=== PATIENT | male | born 1970 | race Caucasian/White ===

== ENCOUNTER → 2016-10-11 | Outpatient (CLI) | payer OTHER ==
--- NOTE | 2016-10-12 23:38 | ECWPNPC ---
PATIENT NAME: SIMA MARIE : 1970 GENDER: MALE VISIT DATE: 10/11/2016 DISCHARGE DATE: 10/11/16 1520 VISIT LOCKED DATE TIME: PHYSICIAN: JAX RAINEY RESOURCE: JAX RAINEY REASON FOR APPOINTMENT 1. BACK HISTORY OF PRESENT ILLNESS HISTORY OF PRESENT ILLNESS: HERE FOR F/U AFTER INITIAL CONSULT ON 08-04-16 FOR CHRONIC LOW BACK PAIN.PRESCRIBED MOBIC 7.5MG DAILY AND TRAMADOL.PATIENT TRIALED MOBIC 7.5MG DAILY X3 DAYS AND IT CAUSED MENTAL CHANGES SO HE STOPPED.HE DIDNT TAKE TRAMADOL.HE IS FEARFUL OF MEDICATION.OFFERED INJECTION TRIALS BUT HE STATES HE REALLY DOESNT WANT TO GET INTO THAT.REPORTING POOR SLEEP SECONDARY TO PAIN.STATES THAT PT AND TRACTION HAD BEEN EFFECTIVE FOR HIM IN PAST.RATING LOW BACK PAIN 6/10 VAS.DISCUSSED MEDICATION AND TREATMENT OPTIONS. FALL RISK SCREENING: SCREENING :NO FALLS IN THE PAST YEAR CURRENT MEDICATIONS NOT-TAKING TRAMADOL HCL 50 MG TABLET 1 TABLET NEEDED ORALLY EVERY 6 HRS PRN MDD4 NOT-TAKING MOBIC 15 MG TABLET 1 TABLET ORALLY ONCE A DAY NOT-TAKING MOBIC 7.5 MG TABLET 1 TABLET ORALLY ONCE A DAY MEDICATION LIST REVIEWED AND RECONCILED WITH THE PATIENT PAST MEDICAL HISTORY RENATA DEP 04/28 MRI L SPINE DISC BULGES AT L3-4, THROUGH L5-S1 WITH MINIMAL THECAL SAC COMPRESSION ALLERGIES PENICILLIN (FOR ALLERGIES USE ONLY): PT UNSURE: ALLERGY SOCIAL HISTORY GENERAL: TOBACCO USE ARE YOU A:NONSMOKER LEARNING BARRIERS / SPECIAL NEEDS ORIENTED TO PLAN OF CARE: PATIENT, PAIN MANAGEMENT PATIENT, ORIENTED TO PLAN OF CARE: PATIENT, PAIN MANAGEMENT PATIENT. NEW PATIENT PAIN DIARY TODAY'S VISITNOTES FROM 0-10, WHAT LEVEL IS YOUR PAIN TODAY?0 PAIN CLINIC PFS, CLERGY, PUBLIC HEALTH REFERRALS PFS REFERRAL NEEDED?NO CLERGY REFERRAL NEEDED?NO PUBLIC HEALTH REFERRAL NEEDED?NO WAS THE PROVIDER NOTIFIED OF ANY PERTINENT INFO?NO PFS REFERRAL NEEDED?NO CLERGY REFERRAL NEEDED?NO PUBLIC HEALTH REFERRAL NEEDED?NO WAS THE PROVIDER NOTIFIED OF ANY PERTINENT INFO?NO REVIEW OF SYSTEMS CONSTITUTIONAL: ANY CHANGE IN YOUR MEDICAL CONDITION? NO . CHILLS NO . FEVER NO . INFECTION: DO YOU HAVE NEW INFECTIONS? NO . DO YOU HAVE HISTORY OF MRSA? NO . MUSCULOSKELETAL: ANY NEW PATTERNS OF PAIN OR NUMBNESS? NO . GASTROENTEROLOGY: ANY NEW CHANGE IN BOWEL CONTROL? NO . GENITOURINARY: ANY NEW CHANGE IN BLADDER CONTROL? NO . IS THERE A CHANCE YOU COULD BE ? NO . HEMATOLOGY/LYMPH: DO YOU TAKE ANY BLOOD THINNERS? (FOR EXAMPLE- COUMADIN, PLAVIX, AGGRENOX, PLATEL, PRADAXA, OR XARELTO) NO . WHEN WAS YOUR LAST DOSE? DATE: TIME: . NEUROLOGY: HAVE YOU FALLEN IN THE PAST 6 MONTHS? YES WHEN HE IS GOING UP THE STAIRS SOMETHIMES HIS LEFT KNEE GIVES OUT . ANY NEW EXTREMITY NUMBNESS OR WEAKNESS? NO . CARDIOLOGY: DO YOU HAVE A PACEMAKER OR DEFIBRILLATOR? NO . RESPIRATORY: HAVE YOU BEEN SICK IN THE PAST WEEK? NO . FEVER NO . FLU LIKE SYMPTOMS? NO . COUGH NO . INTEGUMENTARY: DO YOU HAVE ANY RASHES OR OPEN SORES? NO . ALLERGIC/IMMUNO: ARE YOU ALLERGIC TO SHELLFISH OR IV DYE? NO . ANY NEW ALLERGIES? NO . PSYCHIATRIC: DO YOU HAVE THOUGHTS OF HURTING YOURSELF OR SOMEONE ELSE? NO . ARE YOU ABUSED, NEGLECTED, OR IN AN UNSAFE ENVIRONMENT? NO . ENDOCRINOLOGY: ARE YOU DIABETIC? NO . OTHER: DO YOU NEED ANY PRESCRIPTIONS? NO . IF YES, PLEASE LIST: ____ . ANY NEW PROBLEMS WITH YOUR MEDICATIONS? NO . WHEN DID YOU LAST EAT? ____ . WHEN DID YOU LAST DRINK? ____ . WHAT DID YOU LAST DRINK? ____ . NAME OF PERSON DRIVING YOU HOME? ____ . DO YOU HAVE ANY OTHER QUESTIONS OR CONCERNS NO . REVIEWED BY: PROVIDER: JAX LAURENT . VITAL SIGNS WT 183.4 LBS, HT 71", BMI 25.58 INDEX, BP 161/95 MM HG, REPEAT BP 150/90 MANUAL, HR 72 /MIN, RR 18 /MIN, TEMP 96.3 F, OXYGEN SAT % 93%, NA INITIALS SC 14:48, REVIEWED BY: KG. EXAMINATION GENERAL EXAMINATION: LUNGS:LUNG SOUNDS ARE CLEAR. HEART:HEART RATE REGULAR. MUSCULOSKELETAL:*, MUSCLE STRENGTH TESTING 5/5 BILATERAL, PALPATION: POSITIVE FOR PAIN OVER L/S SPINE. POSITIVE FOR PAIN OVER L/S PARSPINALS.STRAIGHT LEG RAISE POSITIVE FOR LEFT LOW BACK PAIN AT 45 DEGREES.NEGATIVE FOR PATRICKS TEST.. DIAGNOSTIC:MRI L/S [id number]-REVIEWED. ASSESSMENTS LOW BACK PAIN - M54.5 (PRIMARY) LUMBAR DISC DISPLACEMENT WITHOUT MYELOPATHY - M51.26 TREATMENT LOW BACK PAIN STOP MOBIC TABLET, 15 MG, 1 TABLET, ORALLY, ONCE A DAY CONTINUE TRAMADOL HCL TABLET, 50 MG, 1 TABLET NEEDED, ORALLY, EVERY 6 HRS PRN MDD4 REFERRAL TO:PHYSICAL THERAPIST REASON:PT 2XWK X 8WK-LUMBAR TRACTION.CHRONIC LBP W MULTI LEVEL BULGING DISC PROCEDURE CODES FA211 ESTABILISHED PATIENT [facility] CHARGE DISPOSITION & COMMUNICATION FOLLOW UP 6 WEEKS ELECTRONICALLY SIGNED BY ANASTASIIA SILVERIO ON 10/12/2016 AT 01:54 PM EST DISCLAIMER : THIS IS A VISIT SUMMARY EXTRACTED FROM THE [employer] CHART. IT IS NOT A COPY OF THE [employer] PROGRESS NOTE. LIZY
== END ==
LOC: M PAIN 14:40
PROVIDERS: ATTEND Nurse Practitioner Family
DX: Z09 Encounter for follow-up examination after completed treatment for conditions other than malignant neoplasm (principal); G89.29 Other chronic pain; M51.26 Other intervertebral disc displacement, lumbar region; Z88.0 Allergy status to penicillin; Z79.1 Long term (current) use of non-steroidal anti-inflammatories (NSAID); Z79.891 Long term (current) use of opiate analgesic; Z87.891 Personal history of nicotine dependence

== ENCOUNTER → 2017-01-03 | Outpatient (CLI) | payer OTHER ==
--- NOTE | 2017-01-25 00:20 | ECWPNPC ---
PATIENT NAME: SIMA MARIE : 1970 GENDER: MALE VISIT DATE: 01/03/2017 DISCHARGE DATE: 01/03/17 1236 VISIT LOCKED DATE TIME: PHYSICIAN: JAX RAINEY RESOURCE: JAX RAINEY HISTORY OF PRESENT ILLNESS HISTORY OF PRESENT ILLNESS: HERE FOR F/U AND EVALUATION OF CHRONIC LOW BACK PAIN.REPORTS TRAMADOL AND MOBIC ARE INEFFECTIVE.C/O CONSTANT THORACIC AND LOW BACK PAIN WITH INTERMITTENT SHOOTING PAIN DOWN LEFT LEG.DESCRIBES PAIN CONSTANT ACHING PAIN.PAIN IS AGGREVATED BY PROLONGED SITTING OR STANDING.RATING PAIN VAS 5/10.HAS ANXIETY ABOUT TAKING MEDICINE AND ANY MEDICINE TRIALS FOR PAIN HAVE RESULTED IN PATIENT STOPPING MEDICATION DUE TO SIDE EFFECTS. PAIN THE PATIENT DESCRIBES THE PAIN... FALL RISK SCREENING: SCREENING :NO FALLS IN THE PAST YEAR CURRENT MEDICATIONS TAKING TRAMADOL HCL 50 MG TABLET 1 TABLET NEEDED ORALLY EVERY 6 HRS PRN MDD4 NOT-TAKING MOBIC 7.5 MG TABLET 1 TABLET ORALLY ONCE A DAY MEDICATION LIST REVIEWED AND RECONCILED WITH THE PATIENT PAST MEDICAL HISTORY RENATA DEP 04/28 MRI L SPINE DISC BULGES AT L3-4, THROUGH L5-S1 WITH MINIMAL THECAL SAC COMPRESSION ALLERGIES PENICILLIN (FOR ALLERGIES USE ONLY): PT UNSURE: ALLERGY REVIEW OF SYSTEMS CONSTITUTIONAL: ANY CHANGE IN YOUR MEDICAL CONDITION? NO. PT STATES HE WAS REFERRED TO PHYSICAL THERAPY FROM LAST VISIT HERE, BUT PT STATES HE DID NOT START PHYSICAL THERAPY HE HAS NO TRANSPORTATION OR PHONE. . CHILLS NO . FEVER NO . INFECTION: DO YOU HAVE NEW INFECTIONS? NO . DO YOU HAVE HISTORY OF MRSA? NO . MUSCULOSKELETAL: ANY NEW PATTERNS OF PAIN OR NUMBNESS? NO . GASTROENTEROLOGY: ANY NEW CHANGE IN BOWEL CONTROL? NO . GENITOURINARY: ANY NEW CHANGE IN BLADDER CONTROL? NO . IS THERE A CHANCE YOU COULD BE ? NO . HEMATOLOGY/LYMPH: DO YOU TAKE ANY BLOOD THINNERS? (FOR EXAMPLE- COUMADIN, PLAVIX, AGGRENOX, PLATEL, PRADAXA, OR XARELTO) NO . WHEN WAS YOUR LAST DOSE? DATE: TIME: . NEUROLOGY: HAVE YOU FALLEN IN THE PAST 6 MONTHS? NO . ANY NEW EXTREMITY NUMBNESS OR WEAKNESS? NO . CARDIOLOGY: DO YOU HAVE A PACEMAKER OR DEFIBRILLATOR? NO . RESPIRATORY: HAVE YOU BEEN SICK IN THE PAST WEEK? NO . FEVER NO . FLU LIKE SYMPTOMS? NO . COUGH NO . INTEGUMENTARY: DO YOU HAVE ANY RASHES OR OPEN SORES? NO . ALLERGIC/IMMUNO: ARE YOU ALLERGIC TO SHELLFISH OR IV DYE? NO . ANY NEW ALLERGIES? NO . PSYCHIATRIC: DO YOU HAVE THOUGHTS OF HURTING YOURSELF OR SOMEONE ELSE? NO . ARE YOU ABUSED, NEGLECTED, OR IN AN UNSAFE ENVIRONMENT? NO . ENDOCRINOLOGY: ARE YOU DIABETIC? NO . OTHER: DO YOU NEED ANY PRESCRIPTIONS? NO. PT TO DISCUSS PAIN CONTROL WITH Renny RAINEY . IF YES, PLEASE LIST: ____ . ANY NEW PROBLEMS WITH YOUR MEDICATIONS? NO . WHEN DID YOU LAST EAT? ____ . WHEN DID YOU LAST DRINK? ____ . WHAT DID YOU LAST DRINK? ____ . NAME OF PERSON DRIVING YOU HOME? ____ . DO YOU HAVE ANY OTHER QUESTIONS OR CONCERNS NO . REVIEWED BY: PROVIDER: JAX LAURENT . VITAL SIGNS WT 183.6 LBS, HT 71", BMI 25.60 INDEX, BP 145/85 MM HG, HR 90 /MIN, RR 16 /MIN, TEMP 98.6 F, OXYGEN SAT % 97%, SAFE IN ENV? (Y/N) Y, NA INITIALS TL 1133, REVIEWED BY: EM. EXAMINATION GENERAL EXAMINATION: LUNGS:LUNG SOUNDS ARE CLEAR. HEART:HEART RATE REGULAR. MUSCULOSKELETAL:*, MUSCLE STRENGTH TESTING 5/5 BILATERAL, PALPATION: POSITIVE FOR PAIN OVER L/S SPINE. POSITIVE FOR PAIN OVER L/S PARSPINALS.STRAIGHT LEG RAISE POSITIVE FOR LEFT LOW BACK PAIN AT 45 DEGREES.NEGATIVE FOR PATRICKS TEST., TRIGGER POINTS:, TRIGGER POINTS:, ELICITED WITH PALPATION OVER LUMBAR PARAVERTEBRAL MUSCLES AND INTO THE SECRUM. RESTRICTION OF ROM IN THIS AREA. DIAGNOSTIC:MRI L/S [id number]-REVIEWED. ASSESSMENTS LOW BACK PAIN - M54.5 (PRIMARY) LUMBAR DISC DISPLACEMENT WITHOUT MYELOPATHY - M51.26 MYALGIA - M79.1 TREATMENT LOW BACK PAIN NOTES: TRIGGER POINT INJECTIONS LOW BACK,TRIGGER POINT INJECTION MATERIAL WAS PRINTED, REVIEWED WITH AND GIVEN TO PT. PROCEDURE CODES FA211 ESTABILISHED PATIENT [facility] CHARGE DISPOSITION & COMMUNICATION FOLLOW UP 2WK POST (REASON: TPI BILAT. LOW BACK /LOW THORACIC) ELECTRONICALLY SIGNED BY ANASTASIIA SILVERIO ON 01/24/2017 AT 08:24 AM EDT DISCLAIMER : THIS IS A VISIT SUMMARY EXTRACTED FROM THE [employer] CHART. IT IS NOT A COPY OF THE [employer] PROGRESS NOTE. LIZY
== END ==
LOC: M PAIN 11:00
PROVIDERS: ATTEND Nurse Practitioner Family
DX: G89.29 Other chronic pain (principal); M51.26 Other intervertebral disc displacement, lumbar region; M79.1 Myalgia; F17.210 Nicotine dependence, cigarettes, uncomplicated; Z88.0 Allergy status to penicillin; Z79.899 Other long term (current) drug therapy

== ENCOUNTER → 2017-01-13 | Outpatient (CLI) | payer OTHER ==
--- NOTE | 2017-01-19 00:23 | ECWPNPC ---
PATIENT NAME: SIMA MARIE : 1970 GENDER: MALE VISIT DATE: 01/13/2017 DISCHARGE DATE: 01/13/17 1419 VISIT LOCKED DATE TIME: PHYSICIAN: BOYD MCCORMACK RESOURCE: BOYD MCCORMACK REASON FOR APPOINTMENT 1. TPI HISTORY OF PRESENT ILLNESS HISTORY OF PRESENT ILLNESS: PAIN THE PATIENT DESCRIBES THE PAIN... 46 YEAR OLD MALE WITH HISTORY OF CHRONIC BACK PAIN. PATIENT DESCRIBES THE PAIN HAVING IT ALL THE TIME WITH A PAIN SCORE OF 5-6/10 ON TODAY'S VISIT. PATIENT REPORTS THAT THE BUMP IN HIS BACK APPEARED AFTER HE HEARD A POP IN HIS BACK WHICH HAPPENED ABOUT 8 YEARS AGO WHEN HE WAS LOOKING UP AT A CAR ON A HOIST WHEN THE LOUD POP OCCURRED IN HIS BACK. PATIENT DENIES UNEXPLAINABLE WEIGHT LOSS, FEVER, CHILLS, NEW CHANGES ON HIS URINARY OR BOWEL CONTROL. FALL RISK SCREENING: SCREENING :NO FALLS IN THE PAST YEAR CURRENT MEDICATIONS TAKING TRAMADOL HCL 50 MG TABLET 1 TABLET NEEDED ORALLY EVERY 6 HRS PRN MDD4, NOTES: MORE THAN 3 DAYS AGO NOT-TAKING MOBIC 7.5 MG TABLET 1 TABLET ORALLY ONCE A DAY MEDICATION LIST REVIEWED AND RECONCILED WITH THE PATIENT PAST MEDICAL HISTORY RENATA DEP 04/28 MRI L SPINE DISC BULGES AT L3-4, THROUGH L5-S1 WITH MINIMAL THECAL SAC COMPRESSION ALLERGIES PENICILLIN (FOR ALLERGIES USE ONLY): PT UNSURE: ALLERGY SURGICAL HISTORY DENIES PAST SURGICAL HISTORY FAMILY HISTORY NO FAMILY HISTORY DOCUMENTED. SOCIAL HISTORY GENERAL: TOBACCO USE ARE YOU A:CURRENT SMOKER HOW MANY CIGARETTES A DAY DO YOU SMOKE?5 OR LESS HOW SOON AFTER YOU WAKE UP DO YOU SMOKE YOUR FIRST CIGARETTE?AFTER 60 MIN HOW OFTEN DO YOU SMOKE CIGARETTES?SOME DAYS, BUT NOT EVERY DAY PATIENT COUNSELED ON THE DANGERS OF TOBACCO USE AND URGED TO QUIT:07/25/2016 ARE YOU INTERESTED IN QUITTING?THINKING ABOUT QUITTING PREVIOUS QUIT ATTEMPTS?YES, WITHIN THE LAST 6 MONTHS. COUNSELED THE PATIENT ON SMOKING CESSATION, EDUCATION EBERNBYC07/12/2016 ALCOHOL SCREENING POINTS: 0, INTERPRETATION: NEGATIVE. RECREATIONAL DRUG USE DRUG USE?NO OTHERS AT HOME: NONE. SHINTO SHINTO NO PREFERENCE LEARNING BARRIERS / SPECIAL NEEDS BARRIERS TO LEARNING?NO HEARING IMPAIRED?NO VISION IMPAIRED?NO COGNITIVELY IMPAIRED?NO READINESS TO LEARN?YES LEARNING PREFERENCES?NO LEARNING CAPABILITIES PRESENT?YES EMOTIONAL BARRIERS?NO SPECIAL DEVICES?NO ADVANCE DIRECTIVES HEALTH CARE PROXY?NO WOULD YOU LIKE MORE INFORMATION?NO DO YOU HAVE A DNR?NO WOULD YOU LIKE MORE INFORMATION?NO LIVING WILL?NO WOULD YOU LIKE MORE INFORMATION?NO POWER OF VIDEO PRESENTATION OPERATOR?NO WOULD YOU LIKE MORE INFORMATION?NO HOSPITALIZATION/MAJOR DIAGNOSTIC PROCEDURE DENIES PAST HOSPITALIZATION REVIEW OF SYSTEMS CONSTITUTIONAL: ANY CHANGE IN YOUR MEDICAL CONDITION? NO . CHILLS NO . FEVER NO . INFECTION: DO YOU HAVE NEW INFECTIONS? NO . DO YOU HAVE HISTORY OF MRSA? NO . MUSCULOSKELETAL: ANY NEW PATTERNS OF PAIN OR NUMBNESS? NO . GASTROENTEROLOGY: ANY NEW CHANGE IN BOWEL CONTROL? NO . GENITOURINARY: ANY NEW CHANGE IN BLADDER CONTROL? NO . IS THERE A CHANCE YOU COULD BE ? NO . HEMATOLOGY/LYMPH: DO YOU TAKE ANY BLOOD THINNERS? (FOR EXAMPLE- COUMADIN, PLAVIX, AGGRENOX, PLATEL, PRADAXA, OR XARELTO) NO . WHEN WAS YOUR LAST DOSE? DATE: TIME: . NEUROLOGY: HAVE YOU FALLEN IN THE PAST 6 MONTHS? NO . ANY NEW EXTREMITY NUMBNESS OR WEAKNESS? NO . CARDIOLOGY: DO YOU HAVE A PACEMAKER OR DEFIBRILLATOR? NO . RESPIRATORY: HAVE YOU BEEN SICK IN THE PAST WEEK? NO . FEVER NO . FLU LIKE SYMPTOMS? NO . COUGH NO . INTEGUMENTARY: DO YOU HAVE ANY RASHES OR OPEN SORES? NO . ALLERGIC/IMMUNO: ARE YOU ALLERGIC TO SHELLFISH OR IV DYE? NO . ANY NEW ALLERGIES? NO . PSYCHIATRIC: DO YOU HAVE THOUGHTS OF HURTING YOURSELF OR SOMEONE ELSE? NO . ARE YOU ABUSED, NEGLECTED, OR IN AN UNSAFE ENVIRONMENT? NO . ENDOCRINOLOGY: ARE YOU DIABETIC? NO . OTHER: DO YOU NEED ANY PRESCRIPTIONS? NO . IF YES, PLEASE LIST: ____ . ANY NEW PROBLEMS WITH YOUR MEDICATIONS? NO . WHEN DID YOU LAST EAT? 0800 . WHEN DID YOU LAST DRINK? 1300 . WHAT DID YOU LAST DRINK? COFFEE WITH CREAM . NAME OF PERSON DRIVING YOU HOME? WILIAN PLAZA . DO YOU HAVE ANY OTHER QUESTIONS OR CONCERNS NO . REVIEWED BY: PROVIDER: BOYD MCCORMACK MD . VITAL SIGNS WT 183.0 LBS, HT 71", BMI 25.52 INDEX, BP 152/77 MM HG, HR 74 /MIN, RR 16 /MIN, TEMP 98.4 F, OXYGEN SAT % 98%, NA INITIALS TL 1325, REVIEWED BY: LS. EXAMINATION : PATIENT IS ALERT O X 3 AND COOPERATIVE. THERE IS TENDERNESS IN THE LOW BACK WITH BANDS OF TISSUES, RESTRICTION OF MOVEMENT, AND PRESENCE OF TRIGGER POINTS. THERE IS A BUMP IN THE BACK. PATIENT'S LEFT LEG IS WEAKER AT FLEXION AND EXTENSION COMPARED TO THE RIGHT LEG. MRI OF THE LUMBAR SPINE DONE ON 04/16/2015 SHOWS A DISC BULGE AT L3-L4 THROUGH L5-S1. ASSESSMENTS MYALGIA - M79.1 (PRIMARY) LOW BACK PAIN - M54.5 TREATMENT MYALGIA NOTES: WE DISCUSSED SEVERAL ISSUES WITH MR. MARIE'S PAIN MANAGEMENT CASE. AT THIS TIME I WILL PRESCRIBE KETOROLAC FOR THE PATIENT TODAY. I DISCUSSED WITH THE PATIENT THAT I WILL WRITE A SCRIPT FOR AN MRI ORDER OF HIS BACK TO DETERMINE WHAT THE BUMP ON HIS BACK IS. ALSO DISCUSSED WITH THE PATIENT THAT I WOULD LIKE HIM TO SEE A SURGEON FOR A SURGICAL CONSULT OF THE LOW BACK CYST. PATIENT WILL FOLLOW UP WITH JAX RAINEY IN 2 WEEKS. INSTRUCTIONS WERE GIVEN, QUESTIONS WERE ANSWERED, PATIENT REPORTS UNDERSTANDING AND AGREES WITH THE PLAN. I, KATI ARMENDARIZ, DOCUMENTED THE ABOVE INFORMATION ACTING A SCRIBE FOR DR. MCCORMACK. I HAVE REVIEWED THE ABOVE DOCUMENT, WRITTEN BY KATI ARMENDARIZ SCRIBE AND I VERIFY THAT IT IS ACCURATE. OTHERS START KETOROLAC TROMETHAMINE TABLET, 10 MG, 1 TABLET WITH FOOD OR MILK NEEDED, ORALLY, EVERY 6 HRS FOR PAIN MDD2, 5 DAY(S), 10, REFILLS 0 PREVENTIVE MEDICINE PAIN CLINIC TEACHING: MEDICATIONS PT. DECLINED INFORMATION ON KETOROLAC. MEDICATION REVIEWED WITH PT. AND HE VERBALIZED UNDERSTANDING. PROCEDURE CODES G8730 PAIN ASSESS POS TOOL F/U PLAN DOC G8427 DOC MEDS VERIFIED W/PT OR RE DISPOSITION & COMMUNICATION FOLLOW UP 2 WEEKS ELECTRONICALLY SIGNED BY BOYD MCCORMACK MD ON 01/18/2017 AT 05:01 PM EDT DISCLAIMER : THIS IS A VISIT SUMMARY EXTRACTED FROM THE [facility] CHART. IT IS NOT A COPY OF THE [facility] PROGRESS NOTE. MTDDanny
== END ==
LOC: M PAIN 13:00
PROVIDERS: ATTEND Anesthesiology
DX: G89.29 Other chronic pain (principal); M79.1 Myalgia; M54.5 Low back pain; F17.210 Nicotine dependence, cigarettes, uncomplicated; Z88.0 Allergy status to penicillin; Z79.891 Long term (current) use of opiate analgesic

== ENCOUNTER → 2017-01-27 | Outpatient (CLI) | payer OTHER ==
--- NOTE | 2017-02-08 23:41 | ECWPNPC ---
PATIENT NAME: SIMA MARIE : 1970 GENDER: MALE VISIT DATE: 01/27/2017 DISCHARGE DATE: 01/27/17 1039 VISIT LOCKED DATE TIME: PHYSICIAN: JAX RAINEY RESOURCE: JAX RAINEY REASON FOR APPOINTMENT 1. MEDS HISTORY OF PRESENT ILLNESS HISTORY OF PRESENT ILLNESS: HERE FOR F/U AND EVALUATION OF CHRONIC LOW BACK PAIN.REPORTS TRAMADOL AND MOBIC ARE INEFFECTIVE.C/O CONSTANT THORACIC AND LOW BACK PAIN WITH INTERMITTENT SHOOTING PAIN DOWN LEFT LEG.DESCRIBES PAIN CONSTANT ACHING PAIN.PAIN IS AGGREVATED BY PROLONGED SITTING OR STANDING.RATING PAIN VAS 5/10.HAS ANXIETY ABOUT TAKING MEDICINE AND ANY MEDICINE TRIALS FOR PAIN HAVE RESULTED IN PATIENT STOPPING MEDICATION DUE TO SIDE EFFECTS. PAIN THE PATIENT DESCRIBES THE PAIN... THE PATIENT DESCRIBES THE PAIN... FALL RISK SCREENING: SCREENING :NO FALLS IN THE PAST YEAR CURRENT MEDICATIONS TAKING TRAMADOL HCL 50 MG TABLET 1 TABLET NEEDED ORALLY EVERY 6 HRS PRN MDD4 NOT-TAKING KETOROLAC TROMETHAMINE 10 MG TABLET 1 TABLET WITH FOOD OR MILK NEEDED ORALLY EVERY 6 HRS FOR PAIN MDD2 NOT-TAKING MOBIC 7.5 MG TABLET 1 TABLET ORALLY ONCE A DAY MEDICATION LIST REVIEWED AND RECONCILED WITH THE PATIENT PAST MEDICAL HISTORY RENATA DEP 04/28 MRI L SPINE DISC BULGES AT L3-4, THROUGH L5-S1 WITH MINIMAL THECAL SAC COMPRESSION ALLERGIES PENICILLIN (FOR ALLERGIES USE ONLY): PT UNSURE: ALLERGY SOCIAL HISTORY GENERAL: TOBACCO USE ARE YOU A:CURRENT SMOKER HOW MANY CIGARETTES A DAY DO YOU SMOKE?5 OR LESS HOW SOON AFTER YOU WAKE UP DO YOU SMOKE YOUR FIRST CIGARETTE?AFTER 60 MIN HOW OFTEN DO YOU SMOKE CIGARETTES?SOME DAYS, BUT NOT EVERY DAY PATIENT COUNSELED ON THE DANGERS OF TOBACCO USE AND URGED TO QUIT:07/25/2016 ARE YOU INTERESTED IN QUITTING?THINKING ABOUT QUITTING PREVIOUS QUIT ATTEMPTS?YES, WITHIN THE LAST 6 MONTHS. COUNSELED THE PATIENT ON SMOKING CESSATION, EDUCATION [id number]/12/2016 ALCOHOL SCREENING POINTS: 0, INTERPRETATION: NEGATIVE. RECREATIONAL DRUG USE DRUG USE?NO OTHERS AT HOME: NONE. GNOSTICISM GNOSTICISM NO PREFERENCE LEARNING BARRIERS / SPECIAL NEEDS BARRIERS TO LEARNING?NO HEARING IMPAIRED?NO VISION IMPAIRED?NO COGNITIVELY IMPAIRED?NO READINESS TO LEARN?YES LEARNING PREFERENCES?NO LEARNING CAPABILITIES PRESENT?YES EMOTIONAL BARRIERS?NO SPECIAL DEVICES?NO PAIN CLINIC PFS, CLERGY, PUBLIC HEALTH REFERRALS PFS REFERRAL NEEDED?NO CLERGY REFERRAL NEEDED?NO PUBLIC HEALTH REFERRAL NEEDED?NO HAS THE PATIENT BEEN EDUCATED REGARDING HIS/HER PLAN OF CARE?YES HAS THE PATIENT BEEN EDUCATED REGARDING PAIN, THE RISK FOR PAIN, THE IMPORTANCE OF EFFECTIVE PAIN MANAGEMENT, AND THE PAIN ASSESSMENT PROCESS?YES ADVANCE DIRECTIVES HEALTH CARE PROXY?NO WOULD YOU LIKE MORE INFORMATION?NO DO YOU HAVE A DNR?NO WOULD YOU LIKE MORE INFORMATION?NO LIVING WILL?NO WOULD YOU LIKE MORE INFORMATION?NO POWER OF SLICING MACHINE OPERATOR?NO WOULD YOU LIKE MORE INFORMATION?NO REVIEW OF SYSTEMS REVIEWED BY: PROVIDER: JAX LAURENT . CONSTITUTIONAL: ANY CHANGE IN YOUR MEDICAL CONDITION? YES, LEFT HIP AND LEFT KNEE INCREASED PAIN. NOT ABLE TO SLEEP. . CHILLS NO . FEVER NO . INFECTION: DO YOU HAVE NEW INFECTIONS? NO . DO YOU HAVE HISTORY OF MRSA? NO . MUSCULOSKELETAL: ANY NEW PATTERNS OF PAIN OR NUMBNESS? NO . GASTROENTEROLOGY: ANY NEW CHANGE IN BOWEL CONTROL? NO . GENITOURINARY: ANY NEW CHANGE IN BLADDER CONTROL? NO . IS THERE A CHANCE YOU COULD BE ? NO . HEMATOLOGY/LYMPH: DO YOU TAKE ANY BLOOD THINNERS? (FOR EXAMPLE- COUMADIN, PLAVIX, AGGRENOX, PLATEL, PRADAXA, OR XARELTO) NO . WHEN WAS YOUR LAST DOSE? DATE: TIME: . NEUROLOGY: HAVE YOU FALLEN IN THE PAST 6 MONTHS? YES . ANY NEW EXTREMITY NUMBNESS OR WEAKNESS? NO . CARDIOLOGY: DO YOU HAVE A PACEMAKER OR DEFIBRILLATOR? NO . RESPIRATORY: HAVE YOU BEEN SICK IN THE PAST WEEK? NO . FEVER NO . FLU LIKE SYMPTOMS? NO . COUGH NO . INTEGUMENTARY: DO YOU HAVE ANY RASHES OR OPEN SORES? NO . ALLERGIC/IMMUNO: ARE YOU ALLERGIC TO SHELLFISH OR IV DYE? NO . ANY NEW ALLERGIES? NO . PSYCHIATRIC: DO YOU HAVE THOUGHTS OF HURTING YOURSELF OR SOMEONE ELSE? NO . ARE YOU ABUSED, NEGLECTED, OR IN AN UNSAFE ENVIRONMENT? NO . ENDOCRINOLOGY: ARE YOU DIABETIC? NO . OTHER: DO YOU NEED ANY PRESCRIPTIONS? NO . IF YES, PLEASE LIST: ____ . ANY NEW PROBLEMS WITH YOUR MEDICATIONS? NO . WHEN DID YOU LAST EAT? ____ . WHEN DID YOU LAST DRINK? ____ . WHAT DID YOU LAST DRINK? ____ . NAME OF PERSON DRIVING YOU HOME? ____ . DO YOU HAVE ANY OTHER QUESTIONS OR CONCERNS NO . VITAL SIGNS WT 183.0 LBS, HT 71", BMI 25.52 INDEX, BP 140/89 MM HG, HR 96 /MIN, RR 16 /MIN, TEMP 97.9 F, OXYGEN SAT % 95%, NA INITIALS TL 1006, REVIEWED BY: ASHER. EXAMINATION GENERAL EXAMINATION: LUNGS:LUNG SOUNDS ARE CLEAR. HEART:HEART RATE REGULAR. MUSCULOSKELETAL:*, MUSCLE STRENGTH TESTING 5/5 BILATERAL, PALPATION: POSITIVE FOR PAIN OVER L/S SPINE. POSITIVE FOR PAIN OVER L/S PARSPINALS.STRAIGHT LEG RAISE POSITIVE FOR LEFT LOW BACK PAIN AT 45 DEGREES.NEGATIVE FOR PATRICKS TEST., TRIGGER POINTS:, TRIGGER POINTS:, ELICITED WITH PALPATION OVER LUMBAR PARAVERTEBRAL MUSCLES AND INTO THE SECRUM. RESTRICTION OF ROM IN THIS AREA. DIAGNOSTIC:MRI L/S [id number]-REVIEWED. ASSESSMENTS LOW BACK PAIN - M54.5 (PRIMARY) LUMBAR DISC DISPLACEMENT WITHOUT MYELOPATHY - M51.26 MYALGIA - M79.1 TREATMENT LOW BACK PAIN CONTINUE TRAMADOL HCL TABLET, 50 MG, 1 TABLET NEEDED, ORALLY, EVERY 6 HRS PRN MDD4 START AMITRIPTYLINE HCL TABLET, 25 MG, 1 TABLET, ORALLY, ONCE A DAY, 30 DAY(S), 30, REFILLS 1 PREVENTIVE MEDICINE PAIN CLINIC TEACHING: MEDICATIONS DISCUSSED NEW MEDICATION- AMITRIPTYLINE. PROCEDURE CODES FA211 ESTABILISHED PATIENT [facility] CHARGE DISPOSITION & COMMUNICATION FOLLOW UP 4 WEEKS ELECTRONICALLY SIGNED BY ANASTASIIA SILVERIO ON 02/08/2017 AT 04:57 PM EDT DISCLAIMER : THIS IS A VISIT SUMMARY EXTRACTED FROM THE [email or web address] CHART. IT IS NOT A COPY OF THE [email or web address] PROGRESS NOTE. MTDD
== END ==
LOC: M PAIN 10:00
PROVIDERS: ATTEND Nurse Practitioner Family
DX: M51.26 Other intervertebral disc displacement, lumbar region (principal); M79.1 Myalgia; G89.29 Other chronic pain; Z79.891 Long term (current) use of opiate analgesic; Z88.0 Allergy status to penicillin; F17.210 Nicotine dependence, cigarettes, uncomplicated

== ENCOUNTER → 2017-02-28 | Outpatient (REF) | payer OTHER | LOC: M LAB REF 17:19 | PROVIDERS: ATTEND Surgery | DX: D17.1 Benign lipomatous neoplasm of skin and subcutaneous tissue of trunk (principal) ==

== ENCOUNTER → 2017-03-16 | Outpatient (CLI) | payer OTHER | LOC: M PAIN 13:45 | PROVIDERS: ATTEND Nurse Practitioner Family | DX: Z53.29 Procedure and treatment not carried out because of patient's decision for other reasons (principal) ==

== ENCOUNTER → 2017-03-28 | Outpatient (CLI) | payer OTHER ==
--- NOTE | 2017-03-28 23:45 | ECWPNPC ---
PATIENT NAME: SIMA MARIE : 1970 GENDER: MALE VISIT DATE: 03/28/2017 DISCHARGE DATE: 03/28/17 0000 VISIT LOCKED DATE TIME: PHYSICIAN: JAX RAINEY RESOURCE: JAX RAINEY REASON FOR APPOINTMENT 1. BACK HISTORY OF PRESENT ILLNESS HISTORY OF PRESENT ILLNESS: PATIENT WAS PACING WITH ARMS FOLDED WITH VERY ANGRY FACE.STATES HE HAS BEEN WAITING 45 MINUTES TO SEE ME.LEFT WITHOUT BEING SEEN LAST VISIT AND NO SHOWED ON SEVERAL OCCASIONS.ASKS ME WHY THEY DIDNT REMOVE ALL OF THE LUMP ON HIS BACK .TOLD HIM THAT HE WOULD NEED TO ASK SURGEON.HE SAID HE WILL NEVER GO THERE AGAIN FOR THE SAME REASON HERE DUE TO WAIT.I TOLD HIM WE DO THE BEST WE CAN AT SEEING OUR PATIENTS ON A REGULAR BASIS BUT OFTEN TIMES WE DO RUN LATE.IT SHOULD BE NOTED THAT PATIENTS APT. 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 FALL RISK SCREENING: SCREENING :NO FALLS IN THE PAST YEAR CURRENT MEDICATIONS TAKING TRAMADOL HCL 50 MG TABLET 1 TABLET NEEDED ORALLY EVERY 6 HRS PRN MDD4 TAKING AMITRIPTYLINE HCL 25 MG TABLET 1 TABLET ORALLY ONCE A DAY NOT-TAKING KETOROLAC TROMETHAMINE 10 MG TABLET 1 TABLET WITH FOOD OR MILK NEEDED ORALLY EVERY 6 HRS FOR PAIN MDD2 NOT-TAKING MOBIC 7.5 MG TABLET 1 TABLET ORALLY ONCE A DAY MEDICATION LIST REVIEWED AND RECONCILED WITH THE PATIENT PAST MEDICAL HISTORY RENATA DEP 04/28 MRI L SPINE DISC BULGES AT L3-4, THROUGH L5-S1 WITH MINIMAL THECAL SAC COMPRESSION ALLERGIES PENICILLIN (FOR ALLERGIES USE ONLY): PT UNSURE: ALLERGY SOCIAL HISTORY GENERAL: TOBACCO USE ARE YOU A:CURRENT SMOKER HOW MANY CIGARETTES A DAY DO YOU SMOKE?5 OR LESS HOW SOON AFTER YOU WAKE UP DO YOU SMOKE YOUR FIRST CIGARETTE?AFTER 60 MIN HOW OFTEN DO YOU SMOKE CIGARETTES?SOME DAYS, BUT NOT EVERY DAY PATIENT COUNSELED ON THE DANGERS OF TOBACCO USE AND URGED TO QUIT:07/25/2016 ARE YOU INTERESTED IN QUITTING?THINKING ABOUT QUITTING PREVIOUS QUIT ATTEMPTS?YES, WITHIN THE LAST 6 MONTHS. COUNSELED THE PATIENT ON SMOKING CESSATION, EDUCATION [id number]/12/2016 ALCOHOL SCREENING POINTS: 0, INTERPRETATION: NEGATIVE. RECREATIONAL DRUG USE DRUG USE?NO OTHERS AT HOME: NONE. 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NO REVIEW OF SYSTEMS REVIEWED BY: PROVIDER: . CONSTITUTIONAL: ANY CHANGE IN YOUR MEDICAL CONDITION? NO . CHILLS NO . FEVER NO . INFECTION: DO YOU HAVE NEW INFECTIONS? NO . DO YOU HAVE HISTORY OF MRSA? NO . MUSCULOSKELETAL: ANY NEW PATTERNS OF PAIN OR NUMBNESS? NO . GASTROENTEROLOGY: ANY NEW CHANGE IN BOWEL CONTROL? NO . GENITOURINARY: ANY NEW CHANGE IN BLADDER CONTROL? NO . IS THERE A CHANCE YOU COULD BE ? NO . HEMATOLOGY/LYMPH: DO YOU TAKE ANY BLOOD THINNERS? (FOR EXAMPLE- COUMADIN, PLAVIX, AGGRENOX, PLATEL, PRADAXA, OR XARELTO) NO . WHEN WAS YOUR LAST DOSE? DATE: TIME: . NEUROLOGY: HAVE YOU FALLEN IN THE PAST 6 MONTHS? NO . ANY NEW EXTREMITY NUMBNESS OR WEAKNESS? NO . CARDIOLOGY: DO YOU HAVE A PACEMAKER OR DEFIBRILLATOR? NO . RESPIRATORY: HAVE YOU BEEN SICK IN THE PAST WEEK? NO . FEVER NO . FLU LIKE SYMPTOMS? NO . COUGH NO . INTEGUMENTARY: DO YOU HAVE ANY RASHES OR OPEN SORES? NO . ALLERGIC/IMMUNO: ARE YOU ALLERGIC TO SHELLFISH OR IV DYE? NO . ANY NEW ALLERGIES? NO . PSYCHIATRIC: DO YOU HAVE THOUGHTS OF HURTING YOURSELF OR SOMEONE ELSE? NO . ARE YOU ABUSED, NEGLECTED, OR IN AN UNSAFE ENVIRONMENT? NO . ENDOCRINOLOGY: ARE YOU DIABETIC? NO . OTHER: DO YOU NEED ANY PRESCRIPTIONS? NO . IF YES, PLEASE LIST: ____ . ANY NEW PROBLEMS WITH YOUR MEDICATIONS? NO . WHEN DID YOU LAST EAT? ____ . WHEN DID YOU LAST DRINK? ____ . WHAT DID YOU LAST DRINK? ____ . NAME OF PERSON DRIVING YOU HOME? ____ . DO YOU HAVE ANY OTHER QUESTIONS OR CONCERNS NO . VITAL SIGNS WT 193 LBS, HT 71", BMI 26.92 INDEX, BP 139/85 MM HG, HR 85 /MIN, RR 16 /MIN, TEMP 97.1 F, OXYGEN SAT % 98%, NA INITIALS AW 1120, REVIEWED BY: ASHER. ASSESSMENTS LOW BACK PAIN - M54.5 (PRIMARY) LUMBAR DISC DISPLACEMENT WITHOUT MYELOPATHY - M51.26 MYALGIA - M79.1 PROCEDURE CODES FA211 ESTABILISHED PATIENT [facility] CHARGE DISPOSITION & COMMUNICATION ELECTRONICALLY SIGNED BY ANASTASIIA SILVERIO ON 03/28/2017 AT 12:58 PM EDT DISCLAIMER : THIS IS A VISIT SUMMARY EXTRACTED FROM THE [employer] CHART. IT IS NOT A COPY OF THE [employer] PROGRESS NOTE. LIZY
== END ==
LOC: M PAIN 11:15
PROVIDERS: ATTEND Nurse Practitioner Family
DX: G89.29 Other chronic pain (principal); M51.26 Other intervertebral disc displacement, lumbar region; M79.1 Myalgia; F17.210 Nicotine dependence, cigarettes, uncomplicated; Z88.0 Allergy status to penicillin; Z79.899 Other long term (current) drug therapy

== ENCOUNTER → 2017-07-10 | Outpatient (REF) ==
--- NOTE | 2017-07-10 12:30 | REP ---
Clinical: Pain . Technique: Internal rotation, external rotation, and Y view left shoulder. Findings: No acute fracture or dislocation. The acromioclavicular and glenohumeral joints are intact. No periarticular calcifications or degenerative changes are appreciated. Sub acromial space is normal. Surrounding soft tissues are unremarkable. Impression: Normal left shoulder radiographs. Signed by Jose Dave MD 07/10/2017 12:22 P
--- NOTE | 2017-07-10 12:33 | REP ---
Clinical: Pain. Technique: AP, lateral, bilateral oblique and sunrise views of the left knee. Findings: Subchondral sclerosis along the tibial plateau and posterior patella with mild joint space narrowing appreciated. Subtle cortical irregularity and early spurring along the lateral femoral condyle and lateral tibial plateau respectively. The patella demonstrates a small presumed unfused accessory ossicle along the inferior margin which less likely represents old trauma. Mild prepatellar soft tissue swelling cannot be excluded. No definite effusion. No acute fracture or dislocation. Impression: Mild arthritic degenerative changes as described above. Signed by Jose Dave MD 07/10/2017 12:24 P
== END ==
LOC: M SMT 11:48
PROVIDERS: ATTEND Internal Medicine
DX: M51.36 Other intervertebral disc degeneration, lumbar region (principal)

== ENCOUNTER 2021-08-11 10:03 | Emergency (ER) | payer OTHER ==
[~2021-08-11] VITALS: Ht 182.9 cm; Wt 83.2 kg
[2021-08-11 10:17] VITALS: BP 136/90
[2021-08-11] MEDS ORDERED: LIDOCAINE 5% (LIDODERM) PATCH TD ONE (11:00)
[2021-08-11] MEDS ORDERED: ACETAMINOPHEN 325 MG TAB PO ONE (11:00)
--- NOTE | 2021-08-11 11:11 | REP ---
INDICATION: dizziness COMPARISON: None. TECHNIQUE: Axial noncontrast images from the skull base to the vertex with coronal reformations. This CT examination was performed using the following dose reduction techniques: Automated exposure control, adjustment of mA and/or kv according to the patient's size, and use of iterative reconstruction technique. FINDINGS: The ventricles, sulci, and cisterns are normal in position and appearance. Jon-white differentiation is maintained. No acute intracranial hemorrhage, mass/mass effect, pathology or trauma/injury. No evidence for acute infarction. No extra-axial fluid collection. Calvarium is intact. Paranasal sinuses and mastoid air cells are clear. IMPRESSION: Normal noncontrast head CT. No evidence for acute intracranial pathology or trauma/injury. <Electronically signed by Jose Dave > 08/11/21 [id number]
[2021-08-11 11:29] LABS: BASO # 0.1 10^3/uL (0.0-0.2); BASO % 0.8 % (0.0-1.0); EOS # 0.2 10^3/uL (0.0-0.5); EOS % 1.8 % (0.0-3.0); HEMATOCRIT 50.9 % (42.0-52.0); HEMOGLOBIN 17.1 g/dl (13.5-17.5); LYMPH # 1.9 10^3/uL (1.5-5.0); LYMPH % 18.9 % (24.0-44.0); MEAN CORPUSCULAR HEMOGLOBIN 30.9 pg (27.0-33.0); MEAN CORPUSCULAR HGB CONC 33.6 g/dl (32.0-36.5); MEAN CORPUSCULAR VOLUME 91.9 fl (80.0-96.0); MONO # 0.9 10^3/uL (0.0-0.8); NEUTROPHILS # 7.1 10^3/uL (1.5-8.5); NEUTROPHILS % 69.1 % (36.0-66.0); PLATELET COUNT, AUTOMATED 238 10^3/uL (150-450); RED BLOOD COUNT 5.54 10^6/uL (4.30-6.10); WHITE BLOOD COUNT 10.2 10^3/uL (4.0-10.0)
--- NOTE | 2021-08-11 11:52 | REP ---
INDICATION: dizziness/part cardiac work up COMPARISON: None. TECHNIQUE: PA and lateral. FINDINGS: The mediastinum and cardiac silhouette are normal. The lung garcía are clear and without acute consolidation, effusion, or pneumothorax. The skeletal structures are intact and normal. IMPRESSION: No acute cardiopulmonary process. <Electronically signed by Jose Dave > 08/11/21 [id number]
[2021-08-11 12:12] LABS: ALBUMIN 3.8 GM/DL (3.2-5.2); ALT/SGPT 41 U/L (12-78); BILIRUBIN,TOTAL 0.3 MG/DL (0.2-1.0); BLOOD UREA NITROGEN 25 MG/DL (7-18); CARBON DIOXIDE LEVEL 25 MEQ/L (21-32); CHLORIDE LEVEL 107 MEQ/L (98-107); CREATININE FOR GFR 1.17 MG/DL (0.70-1.30); GLOMERULAR FILTRATION RATE > 60.0 (>56); GLUCOSE, FASTING 108 MG/DL (70-100); POTASSIUM SERUM 5.6 MEQ/L (3.5-5.1); SODIUM LEVEL 139 MEQ/L (136-145); TOTAL PROTEIN 7.4 GM/DL (6.4-8.2)
[2021-08-11] MEDS ORDERED: NS 1,000 ML IV ONE (12:25)
--- NOTE | 2021-08-11 19:41 | ECGEPIP ---
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
[2021-08-11] MEDS ORDERED: **NOTE PATIENT COMMENT** MISC XX SCH (21:00)
== END 2021-08-11 12:35 | disposition left against medical advice (07) ==
LOC: M ED 10:03 → EDBD 10:03 → M ED 12:35
DX: R42 Dizziness and giddiness (principal); E87.5 Hyperkalemia; M54.9 Dorsalgia, unspecified; E86.0 Dehydration; F17.200 Nicotine dependence, unspecified, uncomplicated; Z88.0 Allergy status to penicillin

== ENCOUNTER 2021-08-15 22:38 | Observation (INO) | payer OTHER ==
[~2021-08-15] VITALS: Ht 182.9 cm; Wt 89.3 kg
--- NOTE | 2021-08-16 00:22 | REPVR ---
PROCEDURE INFORMATION: Exam: XR Chest Exam date and time: 08/15/2021 11:52 PM Age: 51 years old Clinical indication: Patient states "back"pain for a week; Additional info: Dizziness TECHNIQUE: Imaging protocol: XR of the chest. Views: 1 view. COMPARISON: CR Chest, 2 view PA, Lat 08/11/2021 11:50 AM (The report from this study was not available for review at the time of this interpretation.) FINDINGS: Lungs: Unremarkable. No consolidation. No pulmonary edema. Pleural spaces: Unremarkable. No pleural effusion. No pneumothorax. Heart/Mediastinum: Unremarkable. No cardiomegaly. Bones/joints: Unremarkable. IMPRESSION: No acute findings. Electronically signed by: Miguel Gutierrez On 08/16/2021 00:21:46 AM
--- NOTE | 2021-08-16 00:28 | REPVR ---
PROCEDURE INFORMATION: Exam: CT Head Without Contrast Exam date and time: 08/15/2021 12:13 AM Age: 51 years old Clinical indication: Pain; Headache; Additional info: Dizziness TECHNIQUE: Imaging protocol: Computed tomography of the head without contrast. Radiation optimization: All CT scans at this facility use at least one of these dose optimization techniques: automated exposure control; mA and/or kV adjustment per patient size (includes targeted exams where dose is matched to clinical indication); or iterative reconstruction. COMPARISON: CT Head without contrast 08/11/2021 10:57 AM (The report from this study was not available for review at the time of this interpretation.) FINDINGS: Brain: There is no CT evidence for an acute large vessel territorial infarct. No mass, mass effect, midline shift, or herniation is noted. No acute intracranial hemorrhage is seen. The cortical gyration pattern, basal ganglia, thalami, brainstem, and cerebellum are normal in appearance. Cerebral ventricles: Normal. No hydrocephalus. Paranasal sinuses: The imaged portions of the sinuses are well aerated. No air-fluid levels are noted in the sinuses. Mastoid air cells: There is sclerosis, partial opacification, and poor pneumatization of the mastoid air cells bilaterally, which is similar in appearance compared to the CT head on 08/11/2021. Bones/joints: The skull is intact. No suspicious osteolytic or osteoblastic lesion. Soft tissues: Unremarkable. No soft tissue fluid collection. IMPRESSION: No acute intracranial abnormality. Electronically signed by: Miguel Gutierrez On 08/16/2021 00:28:23 AM
[2021-08-16 00:29] LABS: BASO # 0.1 10^3/uL (0.0-0.2); BASO % 0.7 % (0.0-1.0); EOS # 0.3 10^3/uL (0.0-0.5); EOS % 2.8 % (0.0-3.0); HEMATOCRIT 52.1 % (42.0-52.0); HEMOGLOBIN 17.5 g/dl (13.5-17.5); LYMPH # 2.7 10^3/uL (1.5-5.0); LYMPH % 24.4 % (24.0-44.0); MEAN CORPUSCULAR HEMOGLOBIN 31.1 pg (27.0-33.0); MEAN CORPUSCULAR HGB CONC 33.6 g/dl (32.0-36.5); MEAN CORPUSCULAR VOLUME 92.5 fl (80.0-96.0); MONO # 0.9 10^3/uL (0.0-0.8); MONO % 8.1 % (2.0-8.0); NEUTROPHILS # 6.9 10^3/uL (1.5-8.5); NEUTROPHILS % 63.7 % (36.0-66.0); PLATELET COUNT, AUTOMATED 288 10^3/uL (150-450); RED BLOOD COUNT 5.63 10^6/uL (4.30-6.10); WHITE BLOOD COUNT 10.9 10^3/uL (4.0-10.0)
[2021-08-16 02:11] LABS: BLOOD UREA NITROGEN 31 MG/DL (7-18); CALCIUM LEVEL 9.1 MG/DL (8.5-10.1); CARBON DIOXIDE LEVEL 25 MEQ/L (21-32); CHLORIDE LEVEL 108 MEQ/L (98-107); CREATININE FOR GFR 1.22 MG/DL (0.70-1.30); FREE T4 1.02 NG/DL (0.76-1.46); GLOMERULAR FILTRATION RATE > 60.0 (>56); GLUCOSE, FASTING 92 MG/DL (70-100); LIPASE 134 U/L (73-393); POTASSIUM SERUM 4.4 MEQ/L (3.5-5.1); SODIUM LEVEL 140 MEQ/L (136-145)
[2021-08-16 02:27] LABS: ALBUMIN 3.9 GM/DL (3.2-5.2); ALT/SGPT 34 U/L (12-78); BILIRUBIN,DIRECT 0.1 MG/DL (0.0-0.2); BILIRUBIN,TOTAL 0.4 MG/DL (0.2-1.0); TOTAL PROTEIN 7.3 GM/DL (6.4-8.2)
[2021-08-16] MEDS ORDERED: MECLIZINE 25 MG TABLET PO ONE (03:05)
[2021-08-16] MEDS ORDERED: NS 1,000 ML IV SCH (03:20)
[2021-08-16] MEDS ORDERED: ACETAMINOPHEN TAB 650MG DOSE (2X325MG) PO PRN (03:20)
[2021-08-16] MEDS ORDERED: HOME MED LIST COMPLETE! XX SCH (03:30)
[2021-08-16 04:21] LABS: RSV AMPLIFICATION NEGATIVE (NEGATIVE)
[2021-08-16] MEDS ORDERED: DICLOFENAC EPOLAMINE 1.3 % PATCH TOP ONE (04:45)
--- NOTE | 2021-08-16 05:06 | HPEPDOC ---
General Date of Admission 08/16/21 Date of Service: Aug 16, 2021 Chief Complaint The patient is a 51-year-old male admitted with a reason for visit of Dizziness. Source: Patient History of Present Illness Lawrence Beckham is a 51 yo M with significant medical history of preHTN and chronic low back pain who presents with complaints of dizziness x1 week. He describes the dizziness at times room spinning but not always and when asked if it feels as if he may pass out, he described "perhaps if I sit and do nothing as the dizziness is present maybe". Initial dizziness episode was reported as sudden in onset when he first came to ED 08/09; his work-up was nonacute and he was sent home. He reports for the past week he has been only drinking water has not had caffeine or alcohol or cigarettes. He reports that he did notice a trend that the dizziness would come on sometimes when he would eat high carb or high sugar items and thus he steered clear from those things. He also endorses that the dizziness was not related to position changes- he reports improvement in sensation with ambulation. Pt does endorse sensation of BP elevating; he is not taking BP medications. Tonight, patient reports that he had sudden onset of dizziness episode again similar to 08/09 and he came to the ED. His blood pressure was slightly elevated, reportedly SBP 190 with EMS and 177/[address] imaging nonacute and patient was symptom-free and plan for d/c, but as he was leaving the ED to be discharged the dizziness came back and hospitalist consulted for further work-up. In ED meclizine trial given. Patient seen at bedside in no acute distress but he is somewhat irritable affect and this does limit HPI and details. Pt actively grimacing in stretcher regarding back pain. He has chronic back pain but does not endorse this as affecting the dizziness. He does not endorse anxious or stressful thoughts at times of dizziness. Of note, patient does report recent history of 1 month ago right inner ear infection which he reports a severe and also dental caries and dental abscess on the right. Pt denies person, sinus congestion, sore throat, productive cough, sob, palpitations, chest pain, n/v/d, abdominal pain, weakness, or n/t. Patient will be admitted for further evaluation management presenting concern Home Medications No Active Prescriptions or Reported Meds Allergies Coded Allergies: Penicillins (Verified Allergy, Mild, rash, 08/11/21) Past Medical History Medical History Degenerative disc disease, hypertension not medicated Surgical History Denies Family History Significant Family History: No pertinent family hx Social History * Smoker: current smoker (few cigarettes when have but cannot afford so not often-per pt ) Alcohol: occationally (Denied recent use ) Drugs: denies Recent Travel/Sick Contacts: Denies: Recent travel, Recent sick contacts Psychosocial History: No pertinent psych hx 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 Dyspnea, Lt Headedness Gastrointestinal: Denies: Nausea, Vomiting, Abdominal Pain, Diarrhea Genitourinary: Denies: Dysuria, Frequency, Incontinence, Retention Hematologic: Denies: Bruising, Bleeding Excessively Musculoskeletal: Denies: Neck Pain, Back Pain, Joint Pain, Muscle Pain, Spasms Neurological: Reports: Other Symptoms (dizziness); Denies: Weakness, Numbness, Change in speech, Confusion Psych: Reports: Mood Normal; Denies: Depression, Memory Issues Physical Examination General Exam: Positive: Alert, Cooperative, No Acute Distress Eye Exam: Positive: PERRLA, Conjunctiva & lids normal, EOMI; Negative: Sclera icteric ENT Exam: Positive: Atraumatic, Mucous membr. moist/pink, Pharynx Normal, Other ENT (+dental caries) Neck Exam: Positive: Supple; Negative: JVD, thyromegaly Chest Exam: Positive: Clear to auscultation, Normal air movement Heart Exam: Positive: Rate Normal, Regular Rhythm, Normal S1, Normal S2; Negative: Murmurs, Rubs Telemetry: Positive: No significant arrhythmia Abdomen Exam: Positive: Normal bowel sounds, Soft; Negative: Tenderness, Hepatospenomegaly Extremity Exam: Positive: Normal pulses; Negative: Clubbing, Cyanosis, Edema Skin Exam: Positive: Nl turgor and temperature; Negative: Breakdown, Lesion Neuro Exam: Positive: Normal Gait, Normal Speech, Cranial Nerves 3-12 NL, Reflexes 2+ Psych Exam: Positive: Mental status NL, Mood NL, Oriented x 3 Vital Signs Vital Signs Date Time Temp Pulse Resp B/P (MAP) Pulse Ox O2 Delivery O2 Flow Rate FiO2 08/16/21 02:33 80 15 177/94 (121) 95 Room Air 08/15/21 22:51 98.0 Laboratory Data Labs 24H Laboratory Tests 2 08/15/21 23:47: Immature Granulocyte % (Auto) 0.3, Neutrophils (%) (Auto) 63.7, Lymphocytes (%) (Auto) 24.4, Monocytes (%) (Auto) 8.1H, Eosinophils (%) (Auto) 2.8, Basophils (%) (Auto) 0.7, Neutrophils # (Auto) 6.9, Lymphocytes # (Auto) 2.7, Monocytes # (Auto) 0.9H, Eosinophils # (Auto) 0.3, Basophils # (Auto) 0.1, Nucleated Red Blood Cells % (auto) 0.0 08/16/21 00:01: POC Troponin I (Misc) 0.00 08/16/21 01:16: Anion Gap 7L, Glomerular Filtration Rate > 60.0, Calcium Level 9.1, Total Bilirubin 0.4, Direct Bilirubin 0.1, Aspartate Amino Transf (AST/SGOT) 14, Alanine Aminotransferase (ALT/SGPT) 34, Alkaline Phosphatase 96, Total Protein 7.3, Albumin 3.9, Albumin/Globulin Ratio 1.1, Lipase 134, Thyroid Stimulating Hormone (TSH) 2.770, Free Thyroxine 1.02 CBC/BMP Laboratory Tests 08/15/21 23:47 08/16/21 01:16 Assessment/Plan 1. Dizziness secondary to hypertensive urgency versus vertigo versus other: Patient reports dizziness changes intermittently but does describe sensation of "blood pressure rising" in association with dizziness; there have been times where he endorses spinning room. Monitor blood pressure, telemetry -Orthostatic vitals -MRI brain in a.m. -Meclizine trial -Of note, patient does have elevated BUN may benefit from some hydration pending effects on blood pressure -A.m. labs, UDS/etoh pend, consider differential 2. 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 Polycythemia: Could be contributing to above. Relative v secondary, or consideration for MPN, Hct 52, hgb 17.5; pt is a smoker and as mentioned, BUN elevated and pt may be volume depleted -Hydrate -AM labs: cbc and EPO 4. Tobacco: Encourage cessation 5. HTN: May be pain and mood related as patient arrived with hypertensive ep isode 177/82 and during course of ED, without antihypertensive medication, BP 117/67 -Monitor blood pressure in setting of above -Encourage patient sees PCP upon discharge 6. Financial barriers: Could be contributing to patient's stress and there may be a psychosomatic component with dizziness. -Appreciate case management for any community resources to assist patient for successful discharge DVT prophylaxis: SCDs, early ambulation CODE STATUS: Full code Disposition planning: Home, anticipate less than two midnight stay Plan / VTE VTE Prophylaxis Ordered?: Yes EDGAR CARTER NP Aug 16, 2021 03:43
[2021-08-16 05:41] LABS: ETHYL ALCOHOL (ETHANOL) < 0.003 % (0.000-0.010)
[2021-08-16 06:10] LABS: BASO # 0.1 10^3/uL (0.0-0.2); BASO % 0.7 % (0.0-1.0); EOS # 0.2 10^3/uL (0.0-0.5); EOS % 1.8 % (0.0-3.0); HEMATOCRIT 47.7 % (42.0-52.0); HEMOGLOBIN 16.2 g/dl (13.5-17.5); LYMPH # 2.5 10^3/uL (1.5-5.0); LYMPH % 23.2 % (24.0-44.0); MEAN CORPUSCULAR HEMOGLOBIN 30.9 pg (27.0-33.0); MEAN CORPUSCULAR VOLUME 90.9 fl (80.0-96.0); MONO # 0.8 10^3/uL (0.0-0.8); MONO % 7.4 % (2.0-8.0); NEUTROPHILS # 7.1 10^3/uL (1.5-8.5); NEUTROPHILS % 66.6 % (36.0-66.0); PLATELET COUNT, AUTOMATED 268 10^3/uL (150-450); RED BLOOD COUNT 5.25 10^6/uL (4.30-6.10); WHITE BLOOD COUNT 10.6 10^3/uL (4.0-10.0)
--- NOTE | 2021-08-16 06:24 | ECGEPIP ---
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
[2021-08-16 06:28] LABS: HEMOGLOBIN A1c 5.4 %
[2021-08-16 06:43] LABS: BLOOD UREA NITROGEN 28 MG/DL (7-18); CALCIUM LEVEL 8.8 MG/DL (8.5-10.1); CARBON DIOXIDE LEVEL 24 MEQ/L (21-32); CHLORIDE LEVEL 107 MEQ/L (98-107); CREATININE FOR GFR 1.17 MG/DL (0.70-1.30); GLOMERULAR FILTRATION RATE > 60.0 (>56); GLUCOSE, FASTING 132 MG/DL (70-100); MAGNESIUM LEVEL 2.3 MG/DL (1.8-2.4); POTASSIUM SERUM 4.4 MEQ/L (3.5-5.1); SODIUM LEVEL 136 MEQ/L (136-145)
[2021-08-16 07:30] VITALS: BP 140/86
[2021-08-16] MEDS ORDERED: LACTOBACILLUS ACIDOPHILUS CAP (BACID) PO SCH (09:00)
[2021-08-16] MEDS ORDERED: CLINDAMYCIN 150MG CAPSULE PO SCH (09:00)
[2021-08-16] MEDS ORDERED: ISOVUE-370 76% 100ML VIAL As Ordered ONE ×2 (09:36→13:14)
--- NOTE | 2021-08-16 13:44 | IPNPDOC ---
Text Note Date of Service The patient was seen on 08/16/21. NOTE Subjective: -Continues to have episodic vertigo that he perserverates is 2/2 to HTN but his BP has corrected and remains in the 140s on my check twice -We discussed that it is likely that dizziness/vertigo is likely a vestibular neuritis i/s/o of severe dental infection on R given he reports pus drainage with pushing pressure on his jaw. He reports that his dental caries infection has been going on for a "long time" in the order of a month or so. -We discussed that it would be best if I obtained a maxillofacial CT for the sake of evaluating the extent of this dental infection but he was apprehensive about contrast and we have to explain all the components of the contrast media before he agreed. Objective: Vitals: see below General: Alert, Cooperative, No Acute Distress Eyes: PERRLA, Conjunctiva & lids normal, EOMI, anicteric ENT: Mucous membr, diffuse +dental caries with diffuse microdontia Neck: Supple Chest: Clear to auscultation, Normal air movement Heart: Rate Normal, Regular Rhythm, Normal S1, Normal S2, no m/r/g Abdomen: Normal bowel sounds, soft, NTND Extremities: Normal pulses, no edema Skin: Nl turgor and temperature, no breakdown Neuro: Normal Speech, Cranial Nerves 3-12 NL, has horizontal nystagmus Psych: AOx3 Laboratory Data: WBC 10.6 Hgb 16.2 platelets 268 na 136 K 4.4 Cr 1.17 glucose 132 a1c 5.4 Imaging: Head CT: Brain: There is no CT evidence for an acute large vessel territorial infarct. No mass, mass effect, midline shift, or herniation is noted. No acute intracranial hemorrhage is seen. The cortical gyration pattern, basal ganglia, thalami, brainstem, and cerebellum are normal in appearance. Cerebral ventricles: Normal. No hydrocephalus. Paranasal sinuses: The imaged portions of the sinuses are well aerated. No air-fluid levels are noted in the sinuses. Mastoid air cells: There is sclerosis, partial opacification, and poor pneumatization of the mastoid air cells bilaterally, which is similar in appearance compared to the CT head on 08/11/2021. Bones/joints: The skull is intact. No suspicious osteolytic or osteoblastic lesion. Soft tissues: Unremarkable. No soft tissue fluid collection. IMPRESSION: No acute intracranial abnormality. CXR: Lungs: Unremarkable. No consolidation. No pulmonary edema. Pleural spaces: Unremarkable. No pleural effusion. No pneumothorax. Heart/Mediastinum: Unremarkable. No cardiomegaly. Bones/joints: Unremarkable. IMPRESSION: No acute findings. Assessment: 51 yo M with significant medical history of preHTN and chronic low back pain who presented with complaints of dizziness x1 week and has vertigo c/f vestibular neuritis i/s/o a extensive dental caries with draining purulence on R lower jaw, now pending a maxillofacial CT to evaluate extent of infection and weigh potential of oral surgery involvement while on IV clindamycin. He also presented in hypertensive urgency that has improved. Vertigo: c/f vestibular neuritis i/s/o a extensive dental caries with draining purulence on R lower jaw: -now pending a maxillofacial CT to evaluate extent of infection and weigh potential of oral surgery involvement while on IV clindamycin. Monitor blood pressure -telemetry -Orthostatic vitals were negative -cancelled MRI, CT head was without bleeding, mass effect or infarct. Neuro exam is wnl with episodic vertigo. Instead will get maxillofacial CT first. Leukocytosis: In setting of dental infection with draining pus in R lower jaw -Chest x-ray nonacute, UA pending -Mouth exam diffuse caries and pt able to press on R jaw and squeeze exudate -IV clinda, f/u maxillofacial CT to consider oral surgery involvement Polycythemia: Likely 2/2/ smoking -f/u EPO Tobacco: -Encouraged cessation HTN: May be pain and related as patient arrived with hypertensive episode 177/82 now much improved -Monitor blood pressure, if persistent high will treat but at this time, it has improved -Encourage patient sees PCP upon discharge DVT prophylaxis: SCDs, early ambulation CODE STATUS: Full code Disposition planning: Home, anticipate less than two midnight stay VS,Khai, I+O VS, Khai, I+O Laboratory Tests 08/15/21 23:47 08/16/21 01:16 08/16/21 05:49 Vital Signs Date Time Temp Pulse Resp B/P (MAP) Pulse Ox O2 Delivery O2 Flow Rate FiO2 08/16/21 07:30 97.9 75 16 140/86 (104) 94 Room Air LUIS LEE MD Aug 16, 2021 13:44
--- NOTE | 2021-08-16 13:53 | REPVR ---
PROCEDURE INFORMATION: Exam: CT Maxillofacial With Contrast Exam date and time: 08/16/2021 1:18 PM Age: 51 years old Clinical indication: Other: Facial abscess; Patient HX: Two sets of pictures taken due to patient motion; Additional info: Facial abscess, patient now agreeable TECHNIQUE: Imaging protocol: Computed tomography images of the face with intravenous contrast. Radiation optimization: All CT scans at this facility use at least one of these dose optimization techniques: automated exposure control; mA and/or kV adjustment per patient size (includes targeted exams where dose is matched to clinical indication); or iterative reconstruction. Contrast material: ISOVUE 370; Contrast volume: 75 ml; Contrast route: INTRAVENOUS (IV); COMPARISON: CT Head without contrast 08/16/2021 12:11 AM FINDINGS: Limitations: Motion artifact does moderately limit the sensitivity of this examination. Repeat images were taken beginning at the level of the foramen magnum. Orbital cavity: Orbits are normal. Globes are unremarkable. Bones/joints: No acute fracture. Paranasal sinuses: Normal. No air-fluid levels. Soft tissues: There is soft tissue swelling of the right cheek perhaps somewhat greater over the right maxilla without demonstration of a definite abscess. Dental: There are multiple grossly abnormal teeth with fractures and extensive aga reticular pathology most severe involving the 1st right mandibular molar and the 3rd right maxillary molar. There is also quite significant disease involving the roots of the 1st and 2nd right maxillary premolars, and all of the right mandibular molars. There appear to be dental root lesions on the left involving the maxillary premolars and the mandibular premolars and 1st mandibular molar. Again, multiple fragmented teeth are a noted. IMPRESSION: 1. There is soft tissue swelling of the right cheek perhaps somewhat greater over the right maxilla without demonstration of a definite abscess. 2. There are multiple grossly abnormal teeth with fractures and extensive aga reticular pathology most severe involving the 1st right mandibular molar and the 3rd right maxillary molar. There is also quite significant disease involving the roots of the 1st and 2nd right maxillary premolars, and all of the right mandibular molars. 3. There appear to be dental root lesions on the left involving the maxillary premolars and the mandibular premolars and 1st mandibular molar. Again, multiple fragmented teeth are a noted. Electronically signed by: Dov Bullock On 08/16/2021 13:53:29 PM
[2021-08-16] MEDS ORDERED: RISATAB3 PO (16:44)
[2021-08-16] MEDS ORDERED: CLEO300C2 PO (16:44)
[2021-08-16] MEDS ORDERED: CLINDAMYCIN 600 MG in IV 1 EA IV SCH (17:00)
--- NOTE | 2021-08-16 18:58 | DS.PDOC ---
Discharge Summary General Date of Admission Aug 16, 2021 at 03:19 Date of Discharge 08/16/2021 Attending Physician: LUIS LEE MD Discharge Summary PROCEDURES PERFORMED DURING STAY: None ADMITTING DIAGNOSES: Dizziness DISCHARGE DIAGNOSES: Presumed vestibular neuritis Diffuse dental carries with soft tissue infection of the buccal cavity with purulent drainage without definitive abscess HTN Chronic back pain COMPLICATIONS/CHIEF COMPLAINT: Dizziness. HISTORY OF PRESENT ILLNESS: 51 yo M with significant medical history of preHTN and chronic low back pain who presented with complaints of dizziness x1 week. He described the dizziness at times room spinning but not always and when asked if it feels as if he may pass out, he described "perhaps if I sit and do nothing as the dizziness is present maybe". Initial dizziness episode was reported as sudden in onset when he first came to ED 08/09; his work-up was nonacute and he was sent home. He reported that for a week he has been only drinking water and no caffeine or alcohol or cigarettes. HOSPITAL COURSE: In the ED, he was initially hypertensive to SBP 190 per EMS and 177/94 upon arrival and then reduced to 140s without any pharmacotherapy. Head CT was nonacute and patient was symptom-free and the plan was for d/c, but as he was leaving the ED to be discharged the dizziness came back and hospitalist was consulted for further work-up and admission. On internal medicine evaluation, he reported a 1 month history of right inner ear infection which he reports was severe and also dental caries and dental abscess on the right. He otherwise denied person, sinus congestion, sore throat, productive cough, sob, palpitations, chest pain, n/v/d, abdominal pain, weakness, or n/t. On examination he had diffu se dental carries with associate microdontia and pressing down R lower jaw he had some drainage of blood tinged purulence and he reported that this has recently started and he would just spit and rinse out. I ordered a maxillofacial CT that showed soft tissue swelling of the right cheek perhaps somewhat greater over the right maxilla without demonstration of a definite abscess, as well as multiple grossly abnormal teeth with fractures and extensive aga reticular pathology most severe involving the 1st right mandibular molar and the 3rd right maxillary mola, significant disease involving the roots of the 1st and 2nd right maxillary premolars, and all of the right mandibular molars and den josh root lesions on the left involving the maxillary premolars and the mandibular premolars and 1st mandibular molar. Before I could discuss these results with him, he signed out AMA. I had the nurse alert him that I would send 10d worth of OMERO adair to his pharmacy and that I would highly recommend him to complete the course and see a dentist as soon as possible and establish a PCP for hypertension and follow up for his presumed vestibular neuritis. I did not prescribe steroids for it as I did not have adequate time to confirm it and ongoing bacterial infection. DISCHARGE MEDICATIONS: Please see below. ALLERGIES: Please see below. PHYSICAL EXAMINATION ON DISCHARGE: WAS NOT PRESENT AT DISCHARGE LABORATORY DATA: Please see below. IMAGING: Maxillofacial CT: Limitations: Motion artifact does moderately limit the sensitivity of this examination. Repeat images were taken beginning at the level of the foramen magnum. Orbital cavity: Orbits are normal. Globes are unremarkable. Bones/joints: No acute fracture. Paranasal sinuses: Normal. No air-fluid levels. Soft tissues: There is soft tissue swelling of the right cheek perhaps somewhat greater over the right maxilla without demonstration of a definite abscess. Dental: There are multiple grossly abnormal teeth with fractures and extensive aga reticular pathology most severe involving the 1st right mandibular molar and the 3rd right maxillary molar. There is also quite significant disease involving the roots of the 1st and 2nd right maxillary premolars, and all of the right mandibular molars. There appear to be dental root lesions on the left involving the maxillary premolars and the mandibular premolars and 1st mandibular molar. Again, multiple fragmented teeth are a noted. IMPRESSION: 1. There is soft tissue swelling of the right cheek perhaps somewhat greater over the right maxilla without demonstration of a definite abscess. 2. There are multiple grossly abnormal teeth with fractures and extensive aga reticular pathology most severe involving the 1st right mandibular molar and the 3rd right maxillary molar. There is also quite significant disease involving the roots of the 1st and 2nd right maxillary premolars, and all of the right mandibular molars. 3. There appear to be dental root lesions on the left involving the maxillary premolars and the mandibular premolars and 1st mandibular molar. Again, multiple fragmented teeth are a noted. CT head: Brain: There is no CT evidence for an acute large vessel territorial infarct. No mass, mass effect, midline shift, or herniation is noted. No acute intracranial hemorrhage is seen. The cortical gyration pattern, basal ganglia, thalami, brainstem, and cerebellum are normal in appearance. Cerebral ventricles: Normal. No hydrocephalus. Paranasal sinuses: The imaged portions of the sinuses are well aerated. No air-fluid levels are noted in the sinuses. Mastoid air cells: There is sclerosis, partial opacification, and poor pneumatization of the mastoid air cells bilaterally, which is similar in appearance compared to the CT head on 08/11/2021. Bones/joints: The skull is intact. No suspicious osteolytic or osteoblastic lesion. Soft tissues: Unremarkable. No soft tissue fluid collection. IMPRESSION: No acute intracranial abnormality. PROGNOSIS: Good, with med compliance. High risk for readmission if he does not take the antibiotics and seek follow up. ACTIVITY: As tolerated DIET: regular DISCHARGE PLAN: AMA DISPOSITION: 07 Against Medical Advice. DISCHARGE INSTRUCTIONS: AMA. Urged to take the prescribed PO cipro and seek follow up promptly with a GP and dentist within 7d. ITEMS TO FOLLOWUP ON ON OUTPATIENT: Dental infection Vestibular neuritis DISCHARGE CONDITION: Stable TIME SPENT ON DISCHARGE: 45 minutes. Vital Signs/I&Os Vital Signs Date Time Temp Pulse Resp B/P (MAP) Pulse Ox O2 Delivery O2 Flow Rate FiO2 08/16/21 07:30 97.9 75 16 140/86 (104) 94 Room Air Laboratory Data Labs 24H Laboratory Tests 2 08/15/21 23:47: Immature Granulocyte % (Auto) 0.3, Neutrophils (%) (Auto) 63.7, Lymphocytes (%) (Auto) 24.4, Monocytes (%) (Auto) 8.1H, Eosinophils (%) (Auto) 2.8, Basophils ( %) (Auto) 0.7, Neutrophils # (Auto) 6.9, Lymphocytes # (Auto) 2.7, Monocytes # (Auto) 0.9H, Eosinophils # (Auto) 0.3, Basophils # (Auto) 0.1, Nucleated Red Blood Cells % (auto) 0.0 08/16/21 00:01: POC Troponin I (Misc) 0.00 08/16/21 01:16: Anion Gap 7L, Glomerular Filtration Rate > 60.0, Calcium Level 9.1, Total Bilirubin 0.4, Direct Bilirubin 0.1, Aspartate Amino Transf (AST/SGOT) 14, Alanine Aminotransferase (ALT/SGPT) 34, Alkaline Phosphatase 96, Total Protein 7.3, Albumin 3.9, Albumin/Globulin Ratio 1.1, Lipase 134, Thyroid Stimulating Hormone (TSH) 2.770, Free Thyroxine 1.02, Ethyl Alcohol Level < 0.003 08/16/21 03:18: Coronavirus (COVID-19)(PCR) NEGATIVE, Influenza Type A (RT-PCR) NEGATIVE, Influenza Type B (RT-PCR) NEGATIVE, Respiratory Syncytial Virus (PCR) NEGATIVE 08/16/21 05:49: Immature Granulocyte % (Auto) 0.3, Neutrophils (%) (Auto) 66.6H, Lymphocytes (%) (Auto) 23.2L, Monocytes (%) (Auto) 7.4, Eosinophils (%) (Auto) 1.8, Basophils (%) (Auto) 0.7, Neutrophils # (Auto) 7.1, Lymphocytes # (Auto) 2.5, Monocytes # (Auto) 0.8, Eosinophils # (Auto) 0.2, Basophils # (Auto) 0.1, Nucleated Red Blood Cells % (auto) 0.0, Anion Gap 5L, Glomerular Filtration Rate > 60.0, Estimated Mean Plasma Glucose 108, Hemoglobin A1c 5.4, Calcium Level 8.8, Magnesium Level 2.3 08/16/21 07:53: Urine Color STRAW, Urine Appearance CLEAR, Urine pH 5.0, Urine Specific [place] 1.010, Urine Protein NEGATIVE, Urine Glucose (UA) NEGATIVE, Urine Ketones NEGATIVE, Urine Blood NEGATIVE, Urine Nitrite NEGATIVE, Urine Bilirubin NEGATIVE, Urine Urobilinogen 0.2, Urine Leukocyte Esterase NEGATIVE, Urine WBC (Auto) 0, Urine RBC (Auto) 0, Urine Hyaline Casts (Auto) 0, Urine Bacteria (Auto) NEGATIVE, Urine Squamous Epithelial Cells 0, Urine Sperm (Auto) CBC/BMP Laboratory Tests 08/15/21 23:47 08/16/21 01:16 08/16/21 05:49 Discharge Medications Scheduled Clindamycin Hcl (Cleocin HCl) 300 Mg Capsule, 1 CAP PO TID L.acidoph/L.bulg/B.bif/S.therm (Loida-Bid Caplet) 1 Each Tablet, 1 EA PO DAILY Allergies Coded Allergies: Penicillins (Verified Allergy, Mild, rash, 08/11/21) LUIS LEE MD Aug 16, 2021 18:58
== END 2021-08-16 14:30 | disposition left against medical advice (07) ==
LOC: EDBD 22:38 → M ED 22:38 → M ED INP 08-16 03:19 → ENRESERV 08-16 14:40
PROVIDERS: ADMIT Family Medicine; ATTEND Family Medicine
DX: H81.20 Vestibular neuronitis, unspecified ear (principal); Z53.20 Procedure and treatment not carried out because of patient's decision for unspecified reasons; K02.9 Dental caries, unspecified; I10 Essential (primary) hypertension; G89.29 Other chronic pain; M54.50 Low back pain, unspecified; D45 Polycythemia vera; D72.829 Elevated white blood cell count, unspecified; Z79.899 Other long term (current) drug therapy; Z88.0 Allergy status to penicillin; F17.218 Nicotine dependence, cigarettes, with other nicotine-induced disorders
CPT/HCPCS: 70450; 70487; 71045; 80048; 80076; 80307; 81001; 82077; 82668; 83036; 83690; 83735; 84439; 84443; 85025; 87631; 93005; 93041; 94760; 96360; 96361; 99285; Q9967

== ENCOUNTER 2021-09-16 23:11 | Emergency (ER) | payer OTHER ==
[~2021-09-16] VITALS: Ht 185.4 cm; Wt 85.9 kg
[~2021-09-16 23:11] MED LIST: CLEO300C2 PO; RISATAB3 PO
[2021-09-16 23:16] VITALS: BP 129/79
== END 2021-09-17 01:28 | disposition home or self-care (01) ==
LOC: M ED 23:11
DX: E16.2 Hypoglycemia, unspecified (principal); Z88.0 Allergy status to penicillin

== ENCOUNTER → 2022-10-07 | Outpatient (CLI) | payer OTHER ==
[2022-10-07 14:23] LABS: BASO # 0.1 10^3/uL (0.0-0.2); BASO % 0.8 % (0.0-1.0); EOS # 0.3 10^3/uL (0.0-0.5); EOS % 2.5 % (0.0-3.0); HEMATOCRIT 52.2 % (42.0-52.0); HEMOGLOBIN 17.2 g/dl (13.5-17.5); LYMPH # 2.9 10^3/uL (1.5-5.0); LYMPH % 26.6 % (24.0-44.0); MEAN CORPUSCULAR HEMOGLOBIN 30.9 pg (27.0-33.0); MEAN CORPUSCULAR VOLUME 93.9 fl (80.0-96.0); MONO # 0.9 10^3/uL (0.0-0.8); MONO % 8.4 % (2.0-8.0); NEUTROPHILS # 6.6 10^3/uL (1.5-8.5); NEUTROPHILS % 61.2 % (36.0-66.0); PLATELET COUNT, AUTOMATED 318 10^3/uL (150-450); RED BLOOD COUNT 5.56 10^6/uL (4.30-6.10); WHITE BLOOD COUNT 10.8 10^3/uL (4.0-10.0)
[2022-10-07 14:53] LABS: URIC ACID 4.7 MG/DL (3.7-9.2)
[2022-10-07 14:56] LABS: ALKALINE PHOSPHATASE 97 U/L (46-116); ALT/SGPT 19 U/L (7.0-40); AST/SGOT 17 U/L (<34); BILIRUBIN,TOTAL 0.4 MG/DL (0.3-1.2); BLOOD UREA NITROGEN 26 MG/DL (9-23); CALCIUM LEVEL 9.1 MG/DL (8.5-10.1); CARBON DIOXIDE LEVEL 27 MMOL/L (20-31); CHLORIDE LEVEL 106 MMOL/L (98-107); CREATININE FOR GFR 1.07 MG/DL (0.70-1.30); GLOMERULAR FILTRATION RATE > 60.0 (>56); GLUCOSE, FASTING 75 MG/DL (60-100); POTASSIUM SERUM 4.4 MMOL/L (3.5-5.1); SODIUM LEVEL 139 MMOL/L (136-145)
[2022-10-07 14:57] LABS: ERYTHROCYTE SEDIMENTATION RATE 23 mm/hr (0-20)
[2022-10-07 15:00] LABS: C REACTIVE PROTEIN QUANTITATIV < 0.40 MG/DL (<1.0)
[2022-10-07 15:02] LABS: RHEUMATOID FACTOR QUANT 20.8 IU/ML (<14)
== END ==
LOC: M LAB 12:07
PROVIDERS: ATTEND Orthopaedic Surgery
DX: M51.36 Other intervertebral disc degeneration, lumbar region (principal)

== ENCOUNTER → 2022-11-03 | Outpatient (REF) | payer OTHER | LOC: M LAB REF 16:29 | PROVIDERS: ATTEND Physician Assistant | DX: R76.0 Raised antibody titer (principal); M54.50 Low back pain, unspecified ==

== ENCOUNTER 2023-07-16 00:11 | Emergency (ER) | payer OTHER ==
[~2023-07-16] VITALS: Ht 182.9 cm; Wt 90.0 kg
[2023-07-16 01:37] LABS: BASO # 0.1 10^3/uL (0.0-0.2); BASO % 0.7 % (0.0-1.0); EOS # 0.4 10^3/uL (0.0-0.5); EOS % 3.4 % (0.0-3.0); HEMATOCRIT 47.6 % (42.0-52.0); HEMOGLOBIN 15.9 g/dl (13.5-17.5); LYMPH # 2.8 10^3/uL (1.5-5.0); LYMPH % 26.6 % (24.0-44.0); MEAN CORPUSCULAR HEMOGLOBIN 31.3 pg (27.0-33.0); MEAN CORPUSCULAR HGB CONC 33.4 g/dl (32.0-36.5); MEAN CORPUSCULAR VOLUME 93.7 fl (80.0-96.0); MONO # 0.8 10^3/uL (0.0-0.8); NEUTROPHILS # 6.4 10^3/uL (1.5-8.5); PLATELET COUNT, AUTOMATED 274 10^3/uL (150-450); RED BLOOD COUNT 5.08 10^6/uL (4.30-6.10); WHITE BLOOD COUNT 10.4 10^3/uL (4.0-10.0)
[2023-07-16 02:04] LABS: BLOOD UREA NITROGEN 30 MG/DL (9-23); CARBON DIOXIDE LEVEL 27 MMOL/L (20-31); CHLORIDE LEVEL 105 MMOL/L (98-107); CK-MB VALUE MASS 1.2 NG/ML (<3.6); CREATININE FOR GFR 1.04 MG/DL (0.70-1.30); GLOMERULAR FILTRATION RATE > 60.0 (>56); GLUCOSE, FASTING 119 MG/DL (60-100); POTASSIUM SERUM 4.3 MMOL/L (3.5-5.1); SODIUM LEVEL 138 MMOL/L (136-145)
[2023-07-16 02:09] LABS: CPK CREATINE PHOSPHOKINASE 91 U/L (46-171); MB/CK RELATIVE INDEX 1.31 (< OR =4)
[2023-07-16 04:50] VITALS: BP 118/66; TEMP 98.6; O2SAT 97
[2023-07-16] MEDS ORDERED: HYDR50TA70 PO (06:44)
== END 2023-07-16 06:50 | disposition home or self-care (01) ==
LOC: M ED 00:11 → EDBD 00:11 → M ED 06:50
DX: F41.9 Anxiety disorder, unspecified (principal); I10 Essential (primary) hypertension; F17.200 Nicotine dependence, unspecified, uncomplicated; Z88.0 Allergy status to penicillin; Z79.811 Long term (current) use of aromatase inhibitors

== ENCOUNTER → 2023-08-15 | Outpatient (CLI) | payer OTHER ==
[~2023-08-15] MED LIST changes: +HYDR50TA70 PO
[2023-08-15 11:25] LABS: BASO # 0.1 10^3/uL (0.0-0.2); BASO % 0.6 % (0.0-1.0); EOS # 0.3 10^3/uL (0.0-0.5); EOS % 2.7 % (0.0-3.0); HEMATOCRIT 53.5 % (42.0-52.0); HEMOGLOBIN 17.5 g/dl (13.5-17.5); LYMPH # 2.6 10^3/uL (1.5-5.0); MEAN CORPUSCULAR HGB CONC 32.7 g/dl (32.0-36.5); MEAN CORPUSCULAR VOLUME 94.9 fl (80.0-96.0); NEUTROPHILS # 6.6 10^3/uL (1.5-8.5); NEUTROPHILS % 62.3 % (36.0-66.0); PLATELET COUNT, AUTOMATED 262 10^3/uL (150-450); RED BLOOD COUNT 5.64 10^6/uL (4.30-6.10); WHITE BLOOD COUNT 10.6 10^3/uL (4.0-10.0)
[2023-08-15 11:42] LABS: ERYTHROCYTE SEDIMENTATION RATE 17 mm/hr (0-20)
[2023-08-15 11:54] LABS: C REACTIVE PROTEIN QUANTITATIV < 0.40 MG/DL (<1.0)
[2023-08-15 11:56] LABS: ALBUMIN 4.2 G/DL (3.2-5.2); ALKALINE PHOSPHATASE 83 U/L (46-116); ALT/SGPT 30 U/L (7.0-40); AST/SGOT 15 U/L (<34); BILIRUBIN,TOTAL 0.6 MG/DL (0.3-1.2); BLOOD UREA NITROGEN 29 MG/DL (9-23); CALCIUM LEVEL 9.4 MG/DL (8.5-10.1); CARBON DIOXIDE LEVEL 29 MMOL/L (20-31); CHLORIDE LEVEL 106 MMOL/L (98-107); CREATININE FOR GFR 1.12 MG/DL (0.70-1.30); GLOMERULAR FILTRATION RATE > 60.0 (>56); GLUCOSE, FASTING 104 MG/DL (60-100); POTASSIUM SERUM 4.3 MMOL/L (3.5-5.1); SODIUM LEVEL 139 MMOL/L (136-145)
== END ==
LOC: M LAB 10:49
PROVIDERS: ATTEND Nurse Practitioner Family
DX: R76.0 Raised antibody titer (principal)

== ENCOUNTER → 2024-02-01 | Outpatient (CLI) | payer OTHER | LOC: M RAD 15:15 | PROVIDERS: ATTEND Physician Assistant Surgical | DX: M54.50 Low back pain, unspecified (principal) ==